=== PATIENT | male | born 1945 | race Caucasian/White ===

== ENCOUNTER → 2016-05-09 | Outpatient (CLI) | payer OTHER ==
--- NOTE | 2016-05-09 17:28 | MR ---
MRI of the Brain (Without Contrast) at 1654 hours Clinical Indication: R 42, dizziness and giddiness Technique: T1-weighted images were acquired axially and sagittally from the foramen magnum to the ve rtex. Axial fast inversion recovery, fast T2-weighted, and diffusion-weighted axial images were obta ined without contrast. Findings: The ventricles, cisterns, and sulci are widened consistent with atrophy. No hydrocephalus, midline shift, herniation, or epidural/subdural hematomas. No intracranial hemorrhage or masses. Dif fusion weighted sequence demonstrates no acute infarct. Cerebellar tonsils are in normal position. Pi tuitary gland is normal in size. Normal signal flow-void in the superior sagittal sinus, basilar jose ry, and bilateral internal carotid arteries indicating patency. Paranasal sinuses and mastoid air bria ls are clear. Scattered hyperintense T2/FLAIR signal foci throughout bilateral cerebral white matter. Impression: 1. Mild cerebral atrophy. 2. No acute infarct, hemorrhage, hydrocephalus, mass effect, or herniation. 3. A few nonspecific hyperintense T2/FLAIR signal abnormalities in the white matter of bilateral cere bral hemispheres. Differential diagnosis includes mild microvascular ischemic gliosis, post-infectio us/post-inflammatory sequela, atypical demyelinating disease, or migraine-related sequela.
== END ==
LOC: FIMAGING 16:16
PROVIDERS: ATTEND Internal Medicine Geriatric Medicine
DX: R42 Dizziness and giddiness (principal)

== ENCOUNTER → 2016-12-10 | Outpatient (CLI) | payer OTHER | LOC: FIMAGING 09:41 | PROVIDERS: ATTEND Internal Medicine Gastroenterology | DX: K22.4 Dyskinesia of esophagus (principal) ==